=== PATIENT | female | born 1965 | race Caucasian/White ===

== ENCOUNTER 2017-01-24 06:15 | Emergency (ER) | payer SELFPAY ==
[~2017-01-24] VITALS: Ht 162.6 cm; Wt 70.0 kg
[2017-01-24 06:24] VITALS: BP 147/74; PULSE 78; RESP 14; TEMP 98.3; O2SAT 99
[2017-01-24] MEDS ORDERED: SODIUM CHLOR 0.9% 1000 ML INJ 1,000 ML IV SCH (06:56)
[2017-01-24] MEDS ORDERED: MORPHINE SULFATE 4 MG/ML INJ IV PUSH ONE (07:00)
[2017-01-24] MEDS ORDERED: ONDANSETRON HCL 4 MG/2 ML VIAL IVP ONE (07:00)
[2017-01-24] MEDS ORDERED: DICYCLOMINE HCL 10 MG CAP PO ONE (07:00)
[2017-01-24] MEDS ORDERED: SODIUM CHLORIDE 0.9% FLUSH 10 ML FLUSH IV FLUSH PRN (07:00)
--- NOTE | 2017-01-24 07:03 | PD ---
HPI Chief Complaint: GI Complaint Time Seen by Provider: 06:53 Travel History International Travel<30 days: No Contact w/Intl Traveler<30days: No Traveled to known affect area: No History of Present Illness HPI The patient is a 51-year-old female who presents to the emergency department for a one-week history of nausea, vomiting, diarrhea, lower abdominal pain. The patient has a history of colitis, states she was diagnosed with lymphocytic colitis after endoscopy and colonoscopy. The patient does have a previous history of hysterectomy and appendectomy. Her symptoms been ongoing for 1 week, she has persistent nausea, vomiting, diarrhea, and lower abdominal pain. The diarrhea is described as loose, watery, without any visible blood. She denies any recent international travel. She denies any fever or has had intermittent chills and sweats. The patient's primary physician is located in [place], [place]. Symptoms are moderate, there are no current alleviating factors, possibly exacerbated by history of colitis and diverticulitis. She denies any chest pain, shortness of breath, cough, dysuria , frequency, urgency, or hematuria. PFSH Past Medical History Gastrointestinal Disorders: Yes (COLITIS) Pancreatitis: Yes ?: Not Past Surgical History Appendectomy: Yes Hysterectomy: Yes Tonsillectomy: Yes Social History Alcohol Use: Yes (RARE) Tobacco Use: Yes (1/2 PPD) Substance Use: No Allergies-Medications (Allergen,Severity, Reaction): Coded Allergies: Codeine (Verified Allergy, Severe, Nausea/Vomiting, 01/24/17) Darvocet-N 100 (Verified Allergy, Severe, Anaphylaxis, 01/24/17) Reported Meds & Prescriptions Reported Meds & Active Scripts Active No Active Prescriptions or Reported Medications Review of Systems Except as stated in HPI: all other systems reviewed are Neg General / Constitutional: Positive: Chills, No: Fever HENT: No: Lightheadedness Cardiovascular: No: Chest Pain or Discomfort Respiratory: No: Shortness of Breath Gastrointestinal: Positive: Nausea, Vomiting, Diarrhea, Abdominal Pain Genitourinary: No: Dysuria Musculoskeletal: No: Myalgias, Arthralgias Skin: No Rash Physical Exam Narrative GENERAL: Awake, alert, pleasant 51-year-old female who appears her stated age and appears in mild discomfort. SKIN: Focused skin assessment warm/dry. HEAD: Atraumatic. Normocephalic. EYES: No scleral icterus. No injection or drainage. ENT: No nasal bleeding or discharge. Mucous membranes pink and moist. NECK: Trachea midline. No JVD. CARDIOVASCULAR: Regular rate and rhythm. No murmur appreciated. RESPIRATORY: No accessory muscle use. Clear to auscultation. Breath sounds equal bilaterally. GASTROINTESTINAL: Abdomen soft, tender to palpation in the lower quadrants bilateral. No rebound tenderness, guarding, or rigidity. MUSCULOSKELETAL: No obvious deformities. No clubbing. No cyanosis. No edema. NEUROLOGICAL: Awake and alert. No obvious cranial nerve deficits. Motor grossly within normal limits. Normal speech. PSYCHIATRIC: Appropriate mood and affect; insight and judgment normal. Data Data Last Documented VS Vital Signs Date Time Temp Pulse Resp B/P Pulse Ox O2 Delivery O2 Flow Rate FiO2 01/24/17 07:05 98 Room Air 01/24/17 06:24 98.3 78 14 147/74 Orders Complete Blood Count With Diff (01/24/17 06:56) Comprehensive Metabolic Panel (01/24/17 06:56) Lipase (01/24/17 06:56) Urinalysis - C+S If Indicated (01/24/17 06:56) Ct Abd/Pel W/O Iv Contrast (01/24/17 06:56) Iv Access Insert/Monitor (01/24/17 06:56) Ecg Monitoring (01/24/17 06:56) Oximetry (01/24/17 06:56) Morphine Inj (Morphine Inj) (01/24/17 07:00) Ondansetron Inj (Zofran Inj) (01/24/17 07:00) Sodium Chlor 0.9% 1000 Ml Inj (Ns 1000 M (01/24/17 06:56) Sodium Chloride 0.9% Flush (Ns Flush) (01/24/17 07:00) Dicyclomine (Bentyl) (01/24/17 07:00) Labs Laboratory Tests Test 01/24/17 01/24/17 07:00 07:07 Urine Color YELLOW Urine Turbidity CLEAR Urine pH 6.0 Urine Specific [place] 1.020 Urine Protein NEG mg/dL Urine Glucose (UA) NEG mg/dL Urine Ketones TRACE mg/dL Urine Occult Blood NEG Urine Nitrite NEG Urine Bilirubin NEG Urine Urobilinogen LESS THAN 2.0 MG/DL Urine Leukocyte Esterase NEG Urine RBC LESS THAN 1 /hpf Urine WBC 1 /hpf Urine Squamous Epithelial 4 /hpf Cells Urine Mucus FEW /lpf Microscopic Urinalysis Comment CULT NOT INDICATED White Blood Count 9.2 TH/MM3 Red Blood Count 4.83 MIL/MM3 Hemoglobin 15.1 GM/DL Hematocrit 44.6 % Mean Corpuscular Volume 92.3 FL Mean Corpuscular Hemoglobin 31.3 PG Mean Corpuscular Hemoglobin 33.9 % Concent Red Cell Distribution Width 12.7 % Platelet Count 229 TH/MM3 Mean Platelet Volume 8.5 FL Neutrophils (%) (Auto) 72.8 % Lymphocytes (%) (Auto) 20.7 % Monocytes (%) (Auto) 4.9 % Eosinophils (%) (Auto) 1.2 % Basophils (%) (Auto) 0.4 % Neutrophils # (Auto) 6.7 TH/MM3 Lymphocytes # (Auto) 1.9 TH/MM3 Monocytes # (Auto) 0.4 TH/MM3 Eosinophils # (Auto) 0.1 TH/MM3 Basophils # (Auto) 0.0 TH/MM3 CBC Comment DIFF FINAL Differential Comment Sodium Level 141 MEQ/L Potassium Level 3.7 MEQ/L Chloride Level 110 MEQ/L Carbon Dioxide Level 26.3 MEQ/L Anion Gap 5 MEQ/L Blood Urea Nitrogen 16 MG/DL Creatinine 0.53 MG/DL Estimat Glomerular Filtration 122 ML/MIN Rate Random Glucose 94 MG/DL Calcium Level 8.9 MG/DL Total Bilirubin 1.5 MG/DL Aspartate Amino Transf 19 U/L (AST/SGOT) Alanine Aminotransferase 26 U/L (ALT/SGPT) Alkaline Phosphatase 78 U/L Total Protein 6.7 GM/DL Albumin 3.5 GM/DL Lipase 132 U/L [facility] Medical Decision Making Medical Screen Exam Complete: Yes Emergency Medical Condition: Yes Medical Record Reviewed: Yes Interpretation(s) Laboratory Tests Test 01/24/17 01/24/17 07:00 07:07 Urine Color YELLOW Urine Turbidity CLEAR Urine pH 6.0 Urine Specific [place] 1.020 Urine Protein NEG mg/dL Urine Glucose (UA) NEG mg/dL Urine Ketones TRACE mg/dL Urine Occult Blood NEG Urine Nitrite NEG Urine Bilirubin NEG Urine Urobilinogen LESS THAN 2.0 MG/DL Urine Leukocyte Esterase NEG Urine RBC LESS THAN 1 /hpf Urine WBC 1 /hpf Urine Squamous Epithelial 4 /hpf Cells Urine Mucus FEW /lpf Microscopic Urinalysis Comment CULT NOT INDICATED White Blood Count 9.2 TH/MM3 Red Blood Count 4.83 MIL/MM3 Hemoglobin 15.1 GM/DL Hematocrit 44.6 % Mean Corpuscular Volume 92.3 FL Mean Corpuscular Hemoglobin 31.3 PG Mean Corpuscular Hemoglobin 33.9 % Concent Red Cell Distribution Width 12.7 % Platelet Count 229 TH/MM3 Mean Platelet Volume 8.5 FL Neutrophils (%) (Auto) 72.8 % Lymphocytes (%) (Auto) 20.7 % Monocytes (%) (Auto) 4.9 % Eosinophils (%) (Auto) 1.2 % Basophils (%) (Auto) 0.4 % Neutrophils # (Auto) 6.7 TH/MM3 Lymphocytes # (Auto) 1.9 TH/MM3 Monocytes # (Auto) 0.4 TH/MM3 Eosinophils # (Auto) 0.1 TH/MM3 Basophils # (Auto) 0.0 TH/MM3 CBC Comment DIFF FINAL Differential Comment Sodium Level 141 MEQ/L Potassium Level 3.7 MEQ/L Chloride Level 110 MEQ/L Carbon Dioxide Level 26.3 MEQ/L Anion Gap 5 MEQ/L Blood Urea Nitrogen 16 MG/DL Creatinine 0.53 MG/DL Estimat Glomerular Filtration 122 ML/MIN Rate Random Glucose 94 MG/DL Calcium Level 8.9 MG/DL Total Bilirubin 1.5 MG/DL Aspartate Amino Transf 19 U/L (AST/SGOT) Alanine Aminotransferase 26 U/L (ALT/SGPT) Alkaline Phosphatase 78 U/L Total Protein 6.7 GM/DL Albumin 3.5 GM/DL Lipase 132 U/L Last Impressions Abdomen/Pelvis CT 01/24/17 0656 Signed Impressions: Service Date/Time: Tuesday, January 24, 2017 07:34 - CONCLUSION: 1. No acute findings within the abdomen and pelvis. Colonic diverticula without diverticulitis. No hydronephrosis or obstructive uropathy. 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 Leodan Maldonado MD Differential Diagnosis Differential diagnosis includes colitis, diverticulitis, gastroenteritis, IBD, IBS, pyelonephritis, dehydration, electrolyte abnormality. Narrative Course IV was established, labs are drawn and sent, and the patient was placed on cardiac telemetry monitoring and continuous pulse oximetry monitoring. The patient was administered morphine, Bentyl, Zofran, and IV fluids. Noncontrast CT of the abdomen and pelvis was ordered to evaluate for colitis/ diverticulitis. I reviewed the EMR, there are no previous visits, CTs to review , or previous colonoscopy/endoscopy to review. The patient's laboratory evaluation is unremarkable except for trace ketones and mild elevation of the bilirubin. CT of the abdomen and pelvis is negative, no evidence of colitis or diverticulitis. Laboratory evaluation is unremarkable, patient is stable for outpatient follow-up with her primary physician. The patient will be discharged home on Bentyl, [place], and Zofran. Diagnosis Primary Impression: Abdominal pain Qualified Code: R10.30 - Lower abdominal pain Additional Impression: Diarrhea Qualified Code: R19.7 - Diarrhea, unspecified type Patient Instructions: General Instructions, Narcotic given in the ED Additional Instructions: Medications as directed. Follow-up with her primary physician. Please provide the patient a copy of her CT results and lab results at discharge. Return if symptoms worsen or progress. Med/Other Pt SpecificInfo: Prescription(s) given Scripts Ondansetron Odt (Zofran Odt)4 Mg Tab4 Mg SL Q6HR PRN (Nausea/Vomiting) #7 TAB Ref 0 Prov:Aiden Finley MD 01/24/17 Hydrocodone-Acetaminophen ([place])5-325 mg Tab1 Tab PO Q6H PRN (PAIN) #12 TAB Ref 0 Prov:Aiden Finley MD 01/24/17 Dicyclomine (Bentyl)10 Mg Cap10 Mg PO QID #15 CAP Ref 0 Prov:Aiden Finley MD 01/24/17 Disposition: 01 DISCHARGE HOME Condition: Stable Aiden Finley MD Jan 24, 2017 07:02
[2017-01-24 07:05] VITALS: O2SAT 98
[2017-01-24 07:27] LABS: AUTOMATED NEUTROPHIL # 6.7 TH/MM3 (1.8-7.7); BASOPHIL % 0.4 % (0.0-2.0); EOSINOPHIL # 0.1 TH/MM3 (0-0.4); EOSINOPHIL % 1.2 % (0.0-4.0); HEMATOCRIT 44.6 % (35.0-46.0); HEMO FLAGS DIFF FINAL; LYMPH % 20.7 % (9.0-44.0); LYMPHOCYTE # 1.9 TH/MM3 (1.0-4.8); MEAN CELL VOLUME 92.3 FL (80.0-100.0); MEAN CORPUSCULAR HEMOGLOBIN 31.3 PG (27.0-34.0); MEAN CORPUSCULAR HGB CONC 33.9 % (32.0-36.0); MONO % 4.9 % (0.0-8.0); NEUT % 72.8 % (16.0-70.0); PLATELET COUNT 229 TH/MM3 (150-450); RED BLOOD COUNT 4.83 MIL/MM3 (4.00-5.30); RED CELL DISTRIBUTION WIDTH 12.7 % (11.6-17.2); WHITE BLOOD COUNT 9.2 TH/MM3 (4.0-11.0)
[2017-01-24 07:34] LABS: BLOOD, URINE NEG (NEG); COMMENT (UR) CULT NOT INDICATED; CULTURE IF INDICATED CULT NOT INDICATED; GLUCOSE,URINE NEG (NEG); KETONE, URINE TRACE mg/dL (NEG); MUCUS URINE FEW /lpf (OCC); NITRITE,URINE NEG (NEG); SQUAMOUS EPITHELIAL CELL URINE 4 /hpf (0-5); URINE COLOR YELLOW (YELLW/STRAW)
[2017-01-24 07:43] LABS: ALT (GPT) 26 U/L (10-53); ANION GAP 5 MEQ/L (5-15); AST (GOT) 19 U/L (15-37); BICARBONATE 26.3 MEQ/L (21.0-32.0); BLOOD UREA NITROGEN 16 MG/DL (7-18); CHLORIDE 110 MEQ/L (98-107); GLOMERULAR FILTRATION RATE 122 ML/MIN (>89); POTASSIUM 3.7 MEQ/L (3.5-5.1); SODIUM (NA) 141 MEQ/L (136-145)
[2017-01-24 07:45] LABS: ALKALINE PHOSPHATASE 78 U/L (45-117); TOTAL BILIRUBIN ADULT 1.5 MG/DL (0.2-1.0)
--- NOTE | 2017-01-24 08:03 | RADRPT ---
EXAM DATE/TIME: 01/24/2017 07:34 [facility] COMPARISON: No previous studies available for comparison. INDICATIONS : Lower abdominal pain. Possible colitis vs. diverticulitis. ORAL CONTRAST: No oral contrast ingested. RADIATION DOSE: 7.09 CTDIvol (mGy) MEDICAL HISTORY : Colitis, pancreatitis SURGICAL HISTORY : Hysterectomy. Appendectomy. ENCOUNTER: Initial ACUITY: 1 day PAIN SCALE: 0/10 LOCATION: Bilateral lower quadrant TECHNIQUE: Volumetric scanning of the abdomen and pelvis was performed. Using automated exposure control and ad justment of the mA and/or kV according to patient size, radiation dose was kept as low as reasonably achievable to obtain optimal diagnostic quality images. DICOM format image data is available electro nically for review and comparison. FINDINGS: Lung bases are clear. No acute findings in the liver, spleen, adrenals, kidneys or pancreas. Calcifie d granulomata are present in the liver and spleen. No calcified gallstones or biliary ductal dilatati on. There is no bowel obstruction. No free air or free fluid. No CT findings for diverticulitis or coliti s. Postoperative hysterectomy and appendectomy by history. CONCLUSION: 1. No acute findings within the abdomen and pelvis. Colonic diverticula without diverticulitis. No hy dronephrosis or obstructive uropathy. 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 Leodan Maldonado MD on January 24, 2017 at 7:55 Board Certified Radiologist. This report was verified electronically.
[2017-01-24] MEDS ORDERED: NORC5TAB PO (08:16)
[2017-01-24] MEDS ORDERED: DICY10 PO (08:16)
[2017-01-24] MEDS ORDERED: ZOFR4TAB3 SL (08:16)
== END 2017-01-24 08:38 | disposition home or self-care (01) ==
LOC: NEPE 06:15
DX: R10.30 Lower abdominal pain, unspecified (principal); R19.7 Diarrhea, unspecified; R11.2 Nausea with vomiting, unspecified; F17.200 Nicotine dependence, unspecified, uncomplicated; Z87.19 Personal history of other diseases of the digestive system
CPT/HCPCS: 74176; 80053; 81001; 83690; 85025; 96374; 96375; 99285; J2270; J2405; J7030